=== PATIENT | female | born 1990 | race Two or more races ===

== ENCOUNTER 2018-11-03 17:39 | Emergency (ER) | payer MEDICAID, OTHER ==
[~2018-11-03] VITALS: Ht 165.1 cm; Wt 84.8 kg
[2018-11-03 18:15] LABS: Basophils # (auto) 0 uL; Basophils % (auto) 0.5 % (0.0-2.0); Eosinophils # (auto) 0.1 uL; Eosinophils % (auto) 0.8 % (0.0-7.0); Hematocrit 44.7 % (36.0-46.0); Hemoglobin 14.9 g/dL (12.2-16.2); Lymphocytes # (auto) 2.4 uL; Lymphocytes % (auto) 26.2 % (10.0-50.0); Mean Corpuscular Hemoglobin 31.8 pg (28.0-32.0); Mean Corpuscular Hgb Conc. 33.3 g/dL (32.0-36.0); Mean Corpuscular Volume 95.4 fL (80.0-100.0); Monocytes # (auto) 0.7 uL; Monocytes % (auto) 7.6 % (0.0-12.0); Neutrophils # (auto) 5.9 uL; Neutrophils % (auto) 64.9 % (37.0-80.0); Nucleated Red Blood Cells % 0.1 %; Platelet Count (auto) 251 10^3/uL (140-450); Red Blood Cells 4.68 10^6/uL (4.0-5.20); White Blood Cell 9.1 10^3/uL (4.4-10.8)
[2018-11-03 18:33] LABS: Albumin 4.1 g/dL (3.4-5.0); Calcium 9.2 mg/dL (8.5-10.1); Potassium 3.8 mmol/L (3.5-5.1)
[2018-11-03 18:37] LABS: BUN/Creatinine Ratio 13.7; Bilirubin, Total 0.4 mg/dL (0.2-1.0); Total Protein 7.6 g/dL (6.4-8.2)
[2018-11-03 21:01] VITALS: BP 114/80
== END 2018-11-03 21:11 | disposition home or self-care (01) ==
LOC: ER 17:39
DX: O20.0 Threatened abortion (principal); Z3A.01 Less than 8 weeks gestation of pregnancy
CPT/HCPCS: 36415; 76801; 76817; 80053; 84702; 85025

== ENCOUNTER 2019-02-26 15:32 | Emergency (ER) | payer MEDICAID ==
[~2019-02-26] VITALS: Ht 162.6 cm; Wt 88.9 kg
[2019-02-26 15:45] VITALS: BP 112/67
[2019-02-26] MEDS ORDERED: IBUPROFEN 600 MG TAB PO ONE (17:00)
== END 2019-02-26 17:09 | disposition home or self-care (01) ==
LOC: ER 15:45
DX: H66.93 Otitis media, unspecified, bilateral (principal)